=== PATIENT | male | born 1995 | race Caucasian/White ===

== ENCOUNTER 2018-03-12 14:39 | Emergency (ER) | payer OTHER ==
[~2018-03-12] VITALS: Ht 172.7 cm; Wt 61.2 kg
== END 2018-03-12 17:18 | disposition home or self-care (01) ==
LOC: ER 14:39
DX: S93.491A Sprain of other ligament of right ankle, initial encounter (principal); X50.3XXA Overexertion from repetitive movements, initial encounter; Y93.89 Activity, other specified; Y92.89 Other specified places as the place of occurrence of the external cause; Y99.8 Other external cause status

== ENCOUNTER 2020-10-20 21:00 | Emergency (ER) | payer OTHER ==
[~2020-10-20] VITALS: Ht 170.2 cm; Wt 63.5 kg
[2020-10-21] MEDS ORDERED: ORPHENADRINE C100 MG PO (00:04)
[2020-10-21] MEDS ORDERED: KETO10TA2 PO (00:04)
[2020-11-09] MEDS ORDERED: ACETAMINOPHEN650 M2 (06:50)
== END 2020-10-21 00:24 | disposition home or self-care (01) ==
LOC: ER 21:00
DX: S13.4XXA Sprain of ligaments of cervical spine, initial encounter (principal); M62.838 Other muscle spasm; V49.9XXA Car occupant (driver) (passenger) injured in unspecified traffic accident, initial encounter; Y93.89 Activity, other specified; Y92.488 Other paved roadways as the place of occurrence of the external cause; Y99.8 Other external cause status